=== PATIENT | female | born 1965 | race Caucasian/White ===

== ENCOUNTER 2017-02-06 16:22 | Emergency (ER) | payer OTHER ==
[~2017-02-06] VITALS: Ht 170.2 cm; Wt 62.6 kg
--- NOTE | 2017-02-06 17:10 | PHYS DOC ---
Past History Past Medical History: Other Past Surgical History: No Surgical History Alcohol Use: None Drug Use: None Adult General Chief Complaint Chief Complaint: CHEST PAIN HPI HPI Patient is a 51-year-old female brought to the ED by her with the complaint of chest pain. This morning at about 11:00, she had a dizzy spell. She went downstairs to do some laundry, she came back upstairs, she sat down for a little bit watch TV. She was seated, "out of nowhere" she developed pain in the middle of her chest which went over the top of her left breast, into her left armpit, and down the medial aspect of her left upper arm to the elbow. The pain was "horrible", it was worse in her arm. The pain was worse when she was seated, seemed to improve when she got up and moved around. At its worse it was a 7, it is now a 4. Since it began, it has never completely gone away. It has been present to varying degrees, waxed and waned, but has been present the entire time. She took some Tylenol without relief. She also took a low-dose aspirin. Patient does smoke cigarettes. 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 PCP Dr. Mcgarry Patient takes no medications. She denies hypertension, diabetes, or other medical problems. Her mother had a cardiac stent, her mother is also diabetic. Otherwise negative family history for [place] or coronary artery disease. Review of Systems Review of Systems Constitutional: Denies fever or chills [] HENT: Denies nasal congestion or sore throat [] Respiratory: Denies cough or shortness of breath [] Cardiovascular: As in history of present illness GI: Denies abdominal pain, nausea, vomiting, or diarrhea [] : She is postmenopausal and no longer has menstrual periods Musculoskeletal: Denies back pain or joint pain [] Integument: Denies rash or skin lesions [] Neurologic: Denies headache, focal weakness or sensory changes [] Current Medications Current Medications Current Medications Medications (Trade) Dose Ordered Sig/Vaibhav Start Time Stop Time Status Last Admin Dose Admin Aspirin (Children'S Aspirin) 324 mg 1X ONCE 02/06/17 17:15 02/06/17 17:16 UNV Allergies Allergies Allergies Coded Allergies Type Severity Reaction Last Updated Verified No Known Drug Allergies 02/06/17 No Physical Exam Physical Exam Constitutional: Well developed, well nourished, no acute distress, non-toxic appearance. Alert, mentating normally, warm and dry, vital signs stable. HENT: Normocephalic, atraumatic, bilateral external ears normal, nose normal. [ ] Eyes: conjunctiva normal, no discharge. [] Neck: Normal range of motion, no stridor. [] Cardiovascular:Heart rate regular rhythm, no murmur [] Lungs & Thorax: Bilateral breath sounds clear to auscultation [] Skin: Warm, dry, no erythema, no rash. [] Extremities: No tenderness, no cyanosis, no clubbing, ROM intact, no edema. [] Neurologic: Alert and oriented X 3, normal motor function, normal sensory function, no focal deficits noted. [] Current Patient Data Vital Signs Vital Signs Date Time Temp Pulse Resp B/P (MAP) Pulse Ox O2 Delivery O2 Flow Rate FiO2 02/06/17 16:30 98.1 88 16 88 Room Air EKG EKG 12-lead EKG read by me. Sinus rhythm. Heart rate 80. There are no acute ST or T wave changes indicative of ischemia or infarction. No STEMI. 1634 [] Radiology/Procedures Radiology/Procedures One view portable chest x-ray read by me. Heart size is normal. Lung meyer are clear. Mildly flattened hemidiaphragms, possible COPD, no acute findings. [] Course & Med Decision Making Course & Med Decision Making Pertinent Labs and Imaging studies reviewed. (See chart for details) 51-year-old female with cardiac risk factors of smoking and family history presents with left-sided chest pain into her left arm pit and medial aspect of her left upper arm, present waxing and waning for about 6 hours. There is no other explanation for the pain. I discussed with the patient and her that we will check some labs, chest x-ray, EKG and she is agreeable to that plan. Patient rested comfortably in the emergency department. She was given aspirin 324 to chew. She was given a dose of sublingual nitroglycerin. Chest x-ray, EKG unremarkable. Labs significant for a mild troponin elevation. I am concerned about a cardiac etiology. I believe it would be best to transfer her to [place] where cardiac catheter lab is available should that become necessary. Discussed with the patient and her the lab results, my recommendation to transfer to [place], they're agreeable to that plan. I discussed the case with Dr. Srivastava, hospitalist at [facility]. He will accept the patient for transfer. Transfer paperwork was completed and she will be transferred by EMS to [place] for inpatient. Patient remained stable in the emergency department. [] Dragon Disclaimer Dragon Disclaimer This chart was dictated in whole or in part using Voice Recognition software in a busy, high-work load, and often noisy Emergency Department environment. It may contain unintended and wholly unrecognized errors or omissions. Departure Departure: Impression: Primary Impression: Chest pain Additional Impressions: Elevated troponin Non-STEMI (non-ST elevated myocardial infarction) Smoking history Disposition: 02 XFER SHT-TRM HOSP Condition: STABLE Referrals: GIANCARLO MCGARRY MD (PCP) Problem Qualifiers JEANETTE ZAMORA MD Feb 06, 2017 17:10
[2017-02-06 17:19] LABS: BASO % 0 % (0-3); EOS # 0.1 x10^3/uL (0.0-0.7); EOS % 1 % (0-3); HEMATOCRIT 41.2 % (36.0-47.0); HEMOGLOBIN 13.6 g/dL (12.0-15.5); LYMPH # 2.5 x10^3/uL (1.0-4.8); LYMPH % 34 % (24-48); MEAN CORPUSCULAR HEMOGLOBIN 30 pg (25-35); MEAN CORPUSCULAR HGB CONC 33 g/dL (31-37); MEAN CORPUSCULAR VOLUME 90 fL (79-100); MONO # 0.5 x10^3/uL (0.0-1.1); MONO % 7 % (0-9); NEUT # 4.3 x10^3uL (1.8-7.7); NEUT % 58 % (31-73); PLATELET COUNT 193 x10^3/uL (140-400); RED BLOOD COUNT 4.57 x10^6/uL (3.50-5.40); RED CELL DISTRIBUTION WIDTH 14.4 % (11.5-14.5); WHITE BLOOD COUNT 7.4 x10^3/uL (4.0-11.0)
--- NOTE | 2017-02-06 17:29 | EKG ---
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
[2017-02-06] MEDS ORDERED: ASPIRIN 81 MG TAB.CHEW PO ONE (17:30)
[2017-02-06 17:36] LABS: ALBUMIN 3.7 g/dL (3.4-5.0); ALBUMIN/GLOBULIN RATIO 1.2 (1.0-1.7); CALCIUM 8.7 mg/dL (8.5-10.1); POTASSIUM 3.6 mmol/L (3.5-5.1); TOTAL BILIRUBIN 0.3 mg/dL (0.2-1.0); TOTAL PROTEIN 6.9 g/dL (6.4-8.2)
[2017-02-06] MEDS ORDERED: NITROGLYCERIN SUBLINGUAL 0.4 MG BOTTLE OF 25. SL ONE (17:45)
[2017-02-06 18:00] VITALS: BP 116/66
--- NOTE | 2017-02-07 09:00 | RAD ---
AP chest radiograph 02/06/2017 Clinical indication: Chest pain for one day. Comparison: None. Findings: Cardiac and mediastinal silhouettes are within normal limits. No pleural effusion, pneumothorax or focal consolidation. Impression: No acute cardiopulmonary abnormality.
== END 2017-02-06 18:25 | disposition short-term general hospital (02) ==
LOC: ER 16:22
DX: I21.4 Non-ST elevation (NSTEMI) myocardial infarction (principal); R79.89 Other specified abnormal findings of blood chemistry; F17.210 Nicotine dependence, cigarettes, uncomplicated
CPT/HCPCS: 36415; 71010; 80053; 82553; 83880; 84484; 85025; 85610; 85730; 93005; 99285-25

== ENCOUNTER 2017-04-01 18:54 | Emergency (ER) | payer OTHER ==
[~2017-04-01] VITALS: Ht 170.2 cm; Wt 66.1 kg
[2017-04-01] MEDS ORDERED: IV NORMAL SALINE 1,000ML 1,000 ML IV SCH (19:44)
[2017-04-01 19:59] LABS: BASO % 1 % (0-3); EOS # 0.1 x10^3/uL (0.0-0.7); EOS % 2 % (0-3); HEMATOCRIT 39.5 % (36.0-47.0); HEMOGLOBIN 13.4 g/dL (12.0-15.5); LYMPH # 2.5 x10^3/uL (1.0-4.8); LYMPH % 38 % (24-48); MEAN CORPUSCULAR HEMOGLOBIN 31 pg (25-35); MEAN CORPUSCULAR HGB CONC 34 g/dL (31-37); MEAN CORPUSCULAR VOLUME 90 fL (79-100); MONO # 0.5 x10^3/uL (0.0-1.1); MONO % 7 % (0-9); NEUT # 3.4 x10^3uL (1.8-7.7); NEUT % 52 % (31-73); PLATELET COUNT 220 x10^3/uL (140-400); RED BLOOD COUNT 4.38 x10^6/uL (3.50-5.40); RED CELL DISTRIBUTION WIDTH 14.2 % (11.5-14.5); WHITE BLOOD COUNT 6.5 x10^3/uL (4.0-11.0)
[2017-04-01 20:10] LABS: AMPHETAMINE/METHAMPHETAMINE NEG (NEG); BARBITURATES NEG (NEG); BENZODIAZEPINES NEG (NEG); CANNABINOIDS NEG (NEG); COCAINE NEG (NEG); METHADONE NEG (NEG); OPIATES NEG (NEG); PHENCYCLIDINE NEG (NEG)
[2017-04-01 20:27] LABS: BACTERIA,URINE 0 /HPF (0-FEW); BILIRUBIN,URINE NEG (NEG); CLARITY,URINE CLEAR; COLOR,URINE COLORLESS; GLUCOSE,URINE NEG (NEG); NITRITE,URINE NEG (NEG); RBC,URINE OCC /HPF (0-2); UROBILINOGEN,URINE 0.2 mg/dL (0.2 mg/dL); WBC,URINE RARE /HPF (0-4)
[2017-04-01 20:28] LABS: SQUAMOUS EPITHELIAL CELL,UR MOD /LPF
[2017-04-01 20:33] LABS: ALBUMIN 3.6 g/dL (3.4-5.0); ALBUMIN/GLOBULIN RATIO 1.1 (1.0-1.7); CALCIUM 9.7 mg/dL (8.5-10.1); CREATININE 0.8 mg/dL (0.6-1.0); MAGNESIUM 1.7 mg/dL (1.8-2.4); POTASSIUM 3.6 mmol/L (3.5-5.1); TOTAL BILIRUBIN 0.2 mg/dL (0.2-1.0); TOTAL PROTEIN 6.9 g/dL (6.4-8.2)
[2017-04-01] MEDS ORDERED: MAGNESIUM HYDROXIDE 2,400 MG/30 ML ORAL.SUSP. PO ONE (23:30)
--- NOTE | 2017-04-01 23:56 | ED.ADGEN ---
Past History Past Medical History: Other Past Surgical History: No Surgical History Alcohol Use: None Drug Use: None Adult General Chief Complaint Chief Complaint " I ve had chest pain all day.. " My doctor told me to come in and get checked out.." " I had some kind of cardiac event back on February 06.. but I did not need any stents.. they said the cath is clear.. but I GI problems too... and GERD." HPI HPI Patient is a 51 year old female who presents with above hx of chest pain all day. Pain is epigastric area. It is nonradiating. No change with deep breaths or cough. Patient has had previous cardiac workup and catheter at [facility] in January and no pathology reportedly found. Patient never had an EGD. Patient denies any dark or tarry stools. Patient did have intake of spicy hot [place]kin[place] meal yesterday . No history of coagulopathy..Patient normally follows with Dr. Worthy. Review of Systems Review of Systems Constitutional: Denies fever or chills [] Eyes: Denies change in visual acuity, redness, or eye pain [] HENT: Denies nasal congestion or sore throat [] Respiratory: Denies cough or shortness of breath [] Cardiovascular: No additional information not addressed in HPI [] GI: Complaints of epigastric abdominal pain, nausea,. Denies vomiting, bloody stools or diarrhea [] : Denies dysuria or hematuria [] Musculoskeletal: Denies back pain or joint pain [] Integument: Denies rash or skin lesions [] Neurologic: Denies headache, focal weakness or sensory changes [] Endocrine: Denies polyuria or polydipsia [] Family History Family History Noncontributory Current Medications Current Medications Current Medications Medications (Trade) Dose Ordered Sig/Vaibhav Start Time Stop Time Status Last Admin Dose Admin Magnesium Hydroxide (Milk Of Magnesia) 2,400 mg 1X ONCE 04/01/17 23:30 04/01/17 23:31 DC 04/01/17 23:30 2,400 MG Sodium Chloride 1,000 ml @ 1,000 mls/hr Q1H 04/01/17 19:44 04/01/17 20:43 DC 04/01/17 20:05 1,000 MLS/HR Allergies Allergies Allergies Coded Allergies Type Severity Reaction Last Updated Verified No Known Drug Allergies 02/06/17 No Physical Exam Physical Exam Constitutional: Well developed, well nourished, no acute distress, non-toxic appearance. [] HENT: Normocephalic, atraumatic, bilateral external ears normal, oropharynx moist, no oral exudates, nose normal. [] Eyes: PERRLA, EOMI, conjunctiva normal, no discharge. [] Neck: Normal range of motion, no tenderness, supple, no stridor. [] Cardiovascular:Heart rate regular rhythm, no murmur [] Lungs & Thorax: Bilateral breath sounds clear to auscultation [] Abdomen: Bowel sounds normal, soft, no tenderness, no masses, no pulsatile masses. [] Patient declines rectal exam at this time. Skin: Warm, dry, no erythema, no rash. [] Back: No tenderness, no CVA tenderness. [] Extremities: No tenderness, no cyanosis, no clubbing, ROM intact, no edema. [] No cording in legs appreciated Neurologic: Alert and oriented X 3, normal motor function, normal sensory function, no focal deficits noted. [] Psychologic: Affect normal, judgement normal, mood normal. [] Current Patient Data Vital Signs Vital Signs Date Time Temp Pulse Resp B/P (MAP) Pulse Ox O2 Delivery O2 Flow Rate FiO2 04/02/17 00:01 68 18 116/72 (87) 98 Room Air 04/01/17 18:54 98.3 Lab Results Laboratory Tests Test 04/01/17 19:12 04/01/17 19:15 04/01/17 23:20 White Blood Count 6.5 x10^3/uL (4.0-11.0) Red Blood Count 4.38 x10^6/uL (3.50-5.40) Hemoglobin 13.4 g/dL (12.0-15.5) Hematocrit 39.5 % (36.0-47.0) Mean Corpuscular Volume 90 fL (79-100) Mean Corpuscular Hemoglobin 31 pg (25-35) Mean Corpuscular Hemoglobin Concent 34 g/dL (31-37) Red Cell Distribution Width 14.2 % (11.5-14.5) Platelet Count 220 x10^3/uL (140-400) Neutrophils (%) (Auto) 52 % (31-73) Lymphocytes (%) (Auto) 38 % (24-48) Monocytes (%) (Auto) 7 % (0-9) Eosinophils (%) (Auto) 2 % (0-3) Basophils (%) (Auto) 1 % (0-3) Neutrophils # (Auto) 3.4 x10^3uL (1.8-7.7) Lymphocytes # (Auto) 2.5 x10^3/uL (1.0-4.8) Monocytes # (Auto) 0.5 x10^3/uL (0.0-1.1) Eosinophils # (Auto) 0.1 x10^3/uL (0.0-0.7) Basophils # (Auto) 0.0 x10^3/uL (0.0-0.2) D-Dimer (Aileen) 0.61 mg/L (0.00-0.50) H Sodium Level 138 mmol/L (136-145) Potassium Level 3.6 mmol/L (3.5-5.1) Chloride Level 102 mmol/L (98-107) Carbon Dioxide Level 27 mmol/L (21-32) Anion Gap 9 (6-14) Blood Urea Nitrogen 12 mg/dL (7-20) Creatinine 0.8 mg/dL (0.6-1.0) Estimated GFR (Cockcroft-Gault) 75.0 BUN/Creatinine Ratio 15 (6-20) Glucose Level 105 mg/dL (70-99) H Calcium Level 9.7 mg/dL (8.5-10.1) Magnesium Level 1.7 mg/dL (1.8-2.4) L Total Bilirubin 0.2 mg/dL (0.2-1.0) Aspartate Amino Transferase (AST) 16 U/L (15-37) Alanine Aminotransferase (ALT) 30 U/L (14-59) Alkaline Phosphatase 93 U/L (46-116) Creatine Kinase 116 U/L (26-192) Creatine Kinase MB (Mass) 1.5 ng/mL (0.0-3.6) Creatine Kinase MB Relative Index 1.3 % (0-4) Troponin I Quantitative < 0.017 ng/mL (0-0.055) TP-Kkz-A-Type Natriuretic Peptide 74 pg/mL (0-124) Total Protein 6.9 g/dL (6.4-8.2) Albumin 3.6 g/dL (3.4-5.0) Albumin/Globulin Ratio 1.1 (1.0-1.7) Lipase 249 U/L (73-393) Urine Collection Type Unknown Urine Color Colorless Urine Clarity Clear Urine pH 5.5 Urine Specific [place] <=1.005 Urine Protein Neg (NEG-TRACE) Urine Glucose (UA) Neg mg/dL (NEG) Urine Ketones (Stick) Neg mg/dL (NEG) Urine Blood Neg (NEG) Urine Nitrite Neg (NEG) Urine Bilirubin Neg (NEG) Urine Urobilinogen Dipstick 0.2 mg/dL (0.2 mg/dL) Urine Leukocyte Esterase Neg (NEG) Urine RBC Occ /HPF (0-2) Urine WBC Rare /HPF (0-4) Urine Squamous Epithelial Cells Mod /LPF Urine Bacteria 0 /HPF (0-FEW) Urine Opiates Screen Neg (NEG) Urine Methadone Screen Neg (NEG) Urine Barbiturates Neg (NEG) Urine Phencyclidine Screen Neg (NEG) Urine Amphetamine/Methamphetamine Neg (NEG) Urine Benzodiazepines Screen Neg (NEG) Urine Cocaine Screen Neg (NEG) Urine Cannabinoids Screen Neg (NEG) Urine Ethyl Alcohol Neg (NEG) POC Troponin I 0.00 ng/ml (<0.08) EKG EKG My interpretation EKG shows a sinus rhythm at 82 bpm. There is a small incomplete right bundle branch block. Otherwise normal EKG no findings of STEMI with contralateral changes[] Radiology/Procedures Radiology/Procedures My interpretation chest x-ray shows no acute cardiopulmonary findings. CT of chest shows no findings of acute PE or pulmonary pathology.[] Course & Med Decision Making Course & Med Decision Making Pertinent Labs and Imaging studies reviewed. (See chart for details). Discussed risks and benefits of further labs and admission. Patient declines admission at this time will follow-up primary care and cardiology. Recommended follow-up with GI for EGD. Patient takes Zantac 150 mg twice a day. Patient take her daily aspirin. Return if any concerns. [] Final Impression Final Impression 1. Chest Pain 2. Hypomagnesium 3. GERD/Gastritis[] Problems: Dragon Disclaimer Dragon Disclaimer This electronic medical record was generated, in whole or in part, using a voice recognition dictation system. IFEOMA SHEPHERD MD Apr 01, 2017 23:56
[2017-04-02 00:01] VITALS: BP 116/72
[2017-04-02] MEDS ORDERED: RANI150T6 PO (00:02)
--- NOTE | 2017-04-02 03:59 | EKG ---
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
--- NOTE | 2017-04-05 13:18 | EKG ---
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
== END 2017-04-02 00:26 | disposition home or self-care (01) ==
LOC: ER 18:54
DX: R07.89 Other chest pain (principal); E83.42 Hypomagnesemia
CPT/HCPCS: 36415; 80053; 80307; 81001; 82553; 83690; 83735; 83880; 84443; 84484; 85025; 85379; 93005; 96360; 99285-25; G0479; J7030

== ENCOUNTER → 2017-04-30 | Outpatient (CLI) | payer OTHER ==
[2017-04-02 00:01] VITALS: BP 116/72
[~2017-04-30] MED LIST: RANI150T6 PO
--- NOTE | 2017-04-30 10:12 | RAD ---
Pelvic ultrasound, 04/30/2017: History: Postmenopausal vaginal bleeding Transabdominal and transvaginal scans were obtained. The uterus measures 8.3 x 5.8 x 5.2 cm. The central uterine echo complex is thickened measuring 2.3 cm. There is vascularity within this process. A tiny cystic component is evident. The right ovary is unremarkable. The left ovary contains a 2.5 cm cyst. There is a thin septation within this cyst. A trace amount of free fluid is present in the cul-de-sac. The adnexal regions are otherwise unremarkable. IMPRESSION: 1. Moderate nonspecific thickening of the central uterine echo complex with diagnostic considerations including endometrial hyperplasia, an endometrial polyp or endometrial malignancy. 2. Small septated cyst in the left ovary. Sonographic follow-up is suggested to exclude a neoplastic etiology.
== END | disposition home or self-care (01) ==
LOC: US 08:47
PROVIDERS: ATTEND Physician Assistant
DX: N83.202 Unspecified ovarian cyst, left side (principal); N95.0 Postmenopausal bleeding; Z78.0 Asymptomatic menopausal state; F17.200 Nicotine dependence, unspecified, uncomplicated
CPT/HCPCS: 76830; 76856

== ENCOUNTER → 2020-05-07 | Outpatient (CLI) | payer OTHER ==
[~2020-05-07] MED LIST changes: +RANI-376 PO; -RANI150T6 PO
--- NOTE | 2020-05-15 16:25 | RAD ---
DATE: 05/07/2020 10:00 AM EXAM: MAMMO JOHNSON SCREENING BILATERAL HISTORY: Screening COMPARISON: 05/17/2015 Bilateral CC and MLO views of the breasts were performed. Bilateral implant displaced CC and MLO views along with breast tomosynthesis was performed in implant displaced CC and MLO projections. This study was interpreted with the benefit of Computerized Aided Detection (CAD). FINDINGS: Breast Density: HETERO The breast parenchyma Is heterogeneously dense, which could reduce sensitivity of mammography. Breast parenchyma level C Bilateral subpectoral saline implants are redemonstrated. No suspicious masses, microcalcifications or architectural distortion is present to suggest malignancy in either breast. The visualized axillae are unremarkable. IMPRESSION: No mammographic evidence of malignancy. BI-RADS CATEGORY: 1 NEGATIVE RECOMMENDED FOLLOW-UP: 12M 12 MONTH FOLLOW-UP Annual screening mammography is recommended, unless clinically indicated sooner based on symptoms or change in physical exam. PQRS compliance statement: Patient information was entered into a reminder system with a target due date for the next mammogram. Mammography is a sensitive method for finding small breast cancers, but it does not detect them all and is not a substitute for careful clinical examination. A negative mammogram does not negate a clinically suspicious finding and should not result in delay in biopsying a clinically suspicious abnormality. "Our facility is accredited by the [employer] Mammography Program."
== END ==
LOC: MAMMO 09:30
PROVIDERS: ATTEND Family Medicine
DX: Z12.31 Encounter for screening mammogram for malignant neoplasm of breast (principal); N64.89 Other specified disorders of breast
CPT/HCPCS: 77063; 77067

== ENCOUNTER → 2020-10-01 | Outpatient (CLI) | payer OTHER ==
--- NOTE | 2020-10-01 14:46 | RAD ---
EXAM: Left lower extremity venous Doppler sonogram. HISTORY: Pain and swelling. TECHNIQUE: Brice scale and color Doppler sonographic evaluation of the left lower extremity veins with spectral waveform analysis was performed. FINDINGS: There is normal color flow, normal compressibility and there are normal spectral waveforms in the common femoral, superficial femoral, popliteal, posterior tibial and greater saphenous veins. IMPRESSION: No Doppler evidence of lower extremity deep venous thrombosis. Electronically signed by: Reyna Morrow MD (10/01/2020 2:44 PM) [id number]
== END ==
LOC: US 14:14
PROVIDERS: ATTEND Family Medicine
DX: M79.662 Pain in left lower leg (principal)
CPT/HCPCS: 93971